=== PATIENT | female | born 1995 | race Caucasian/White ===

== ENCOUNTER 2021-10-30 06:37 | Day surgery (SDC) | payer OTHER, MEDICAID ==
[2021-10-30] MEDS ORDERED: Sodium Chloride 0.9% 1,000 ML IV SCH (07:00)
[2021-10-30] MEDS ORDERED: Ondansetron 4 MG/2 ML SDV ONE (07:22)
[2021-10-30] MEDS ORDERED: Dexamethasone 4 MG/ML SDV ONE (07:22)
[2021-10-30] MEDS ORDERED: Propofol 200 MG/20 ML SDV ONE (07:22)
[2021-10-30] MEDS ORDERED: Midazolam 1 MG/ML 2 ML SDV ONE (07:22)
[2021-10-30] MEDS ORDERED: fentaNYL 100 MCG/2 ML SDV ONE (07:22)
--- NOTE | 2021-10-30 10:41 | OR ---
DATE OF PROCEDURE: 10/30/2021 SURGEON: Silvestre Contreras MD PROCEDURE: Colonoscopy. FINDINGS: Normal colonoscopy. PREOPERATIVE DIAGNOSIS: Gastrointestinal bleeding. POSTOPERATIVE DIAGNOSIS: Gastrointestinal bleeding. RISKS: Risks, benefits, alternatives, and limitations including, but not limited to infection, bleeding, perforation, false positives, false negatives were explained to the patient and she wished to proceed. PROCEDURE IN DETAIL: The patient was placed in left lateral decubitus position. Digital rectal exam was performed without abnormality. Scope was introduced and advanced atraumatically to the ileocecal valve. A photo was taken of this. Scope was brought back to the ascending, transverse, descending colon, and retroflexed. No evidence of old or new blood. No masses. No polyps. No diverticulosis. No evidence of colitis. No abnormalities on retroflexion. No prominent internal hemorrhoids. No etiology for gastrointestinal bleeding, and no bleeding at this time. Greater than 8 minutes was spent removing the scope. Prep was acceptable, approximately 90% of the luminal surface could be seen. The patient tolerated the procedure well. Silvestre Contreras MD /[id number]
== END 2021-10-30 09:50 | disposition home or self-care (01) ==
LOC: JP.SDS 06:37
PROVIDERS: ATTEND Surgery
DX: K92.2 Gastrointestinal hemorrhage, unspecified (principal)
CPT/HCPCS: 45378; 81025; J1100; J2250; J2405; J2704; J3010; J7030